=== PATIENT | female | born 1960 | race Caucasian/White ===

== ENCOUNTER 2021-06-06 11:45 | Emergency (ER) | payer OTHER, SELFPAY ==
[2021-06-06 12:06] VITALS: BP 145/70; PULSE 64; RESP 16; TEMP 36.5; O2SAT 97; BMI 24.6
--- NOTE | 2021-06-06 13:16 | ED_ITS ---
HPI - Animal Bite <Ruddy Gross PA-C - Last Filed: 06/06/21 18:54> General Chief Complaint: Animal Bite Stated Complaint: squirrel bite on finger Time Seen by Provider: 06/06/21 12:09 Source: patient Mode of arrival: Ambulatory Limitations: no limitations History of Present Illness HPI narrative: Patient is a 60-year-old female presenting to the emergency department today for evaluation a squirrel bite to her left 2nd digit. Patient states that she was hand feeding squirrels today when on the squirrels mistook her finger for a piece of food and bit into the tip of her finger. Patient states that the wound bled but she was able to clean the wound with pre surgical soap and get the bleeding under control. Of note, patient states that the squirrel was not showing aggressive behavior. Patient denies fever, chills, chest pain, shortness of breath, cough, nausea, vomiting, diarrhea, abdominal pain, dysuria, hematuria, diaphoresis, or numbness and tingling in the bilateral upper extremities. No other concerns voiced at this time. Of note, patient states that she had to have emergency surgery in 2016 on her left 2nd digit for a bone infection following a dog bite. Additionally, she notes that her most recent tetanus shot was in May of 2016. Related Data Previous Rx's Medication Instructions Recorded amoxicillin 875 mg-potassium 1 tab PO Q12H #14 tab 06/06/21 clavulanate 125 mg tablet (Augmentin) Allergies Allergy/AdvReac Type Severity Reaction Status Date / Time metoclopramide [From Reglan] Allergy Vomiting Verified 06/06/21 12:05 Sulfa (Sulfonamide Allergy Rash Verified 06/06/21 12:05 Antibiotics) Review of Systems <Ruddy Gross PA-C - Last Filed: 06/06/21 18:54> Constitutional Constitutional: Denies chills, Denies fatigue, Denies fever(s), Denies frequent falls, Denies lethargy and Denies weakness Eyes Eyes: Denies change in vision, Denies eye discharge, Denies irritation and Denies loss of vision ENT Ears, Nose, Mouth, and Throat: Denies change in voice, Denies dizziness, Denies neck pain, Denies sore throat and Denies throat swelling Cardiovascular Cardiovascular: Denies chest pain, Denies irregular heart rhythm, Denies lightheadedness, Denies palpitations, Denies dyspnea, Denies dyspnea on exertion and Denies orthopnea Respiratory Respiratory: Denies cough, Denies dyspnea, Denies dyspnea on exertion and Denies wheezing Gastrointestinal Gastrointestinal: Denies abdominal pain, Denies change in bowel habits, Denies diarrhea, Denies nausea and Denies vomiting Genitourinary Genitourinary: Denies hematuria, Denies flank pain, Denies urinary incontinence and Denies urinary urgency Musculoskeletal Musculoskeletal: Denies back pain, Denies muscle weakness, Denies neck pain, Denies numbness and Denies tingling Integumentary/Breasts Skin/Breast: Denies pruritus, Denies erythema, Denies rash and Reports wounds (Bite wound to the left 2nd finger.) Neurologic Neurologic: Denies dizziness, Denies frequent falls, Denies loss of vision, Denies numbness, Denies tingling and Denies weakness Endocrine Endocrine: Denies fatigue and Denies palpitations Allergic/Immunologic Allergic/Immunologic: Denies throat swelling and Denies wheezing Patient History <Ruddy Gross PA-C - Last Filed: 06/06/21 18:54> Social History Smoking Status: Never smoker Smoking Status: Never smoker alcohol intake frequency: a few times a week Substance Use Type: does not use Exam <Ruddy Gross PA-C - Last Filed: 06/06/21 18:54> Narrative Exam Narrative: GENERAL: 60 year old patient appears stated age. Well-developed patient, in no acute distress. HEAD: Atraumatic. Normocephalic. EYES: Pupils equal round and reactive. Extraocular motions intact. No scleral icterus. No injection or drainage. ENT: Nose without bleeding, purulent drainage. Throat without erythema, tonsillar hypertrophy or exudate. Airway patent. NECK: Trachea midline. Non tender CARDIOVASCULAR: Regular rate and rhythm without murmurs, gallops, or rubs. RESPIRATORY: Clear to auscultation. Breath sounds equal bilaterally. No wheezes, rales, or rhonchi. GASTROINTESTINAL: Abdomen soft, non-tender, nondistended. EXTREMITIES: No edema or joint tenderness. BACK: Nontender without deformity or crepitance. No flank tenderness. NEURO: AOx3. SKIN: No rash or erythema of visible areas. Small bite wound noted along the lateral aspect of the D IP of the left 2nd digit. No active bleeding or drainage, no significant surrounding erythema, warmth, or induration. Initial Vital Signs Initial Vital Signs: Vital Signs Temperature 97.7 F 06/06/21 12:06 Pulse Rate 64 06/06/21 12:06 Respiratory Rate 16 06/06/21 12:06 Blood Pressure 145/70 H 06/06/21 12:06 Pulse Oximetry 97 06/06/21 12:06 <Benjamin Matthews MD - Last Filed: 06/20/21 01:30> Initial Vital Signs Initial Vital Signs: Vital Signs Temperature 97.7 F 06/06/21 12:06 Pulse Rate 64 06/06/21 12:06 Respiratory Rate 16 06/06/21 12:06 Blood Pressure 145/70 H 06/06/21 12:06 Pulse Oximetry 97 06/06/21 12:06 Course <Ruddy Gross PA-C - Last Filed: 06/06/21 18:54> Course Course Narrative: Tdap ordered. Orders Ordered: Discontinued Medications Diphtheria/Tetanus/Acell Pertussis (Tet,Diph,Pertuss(Acell),Vac/Pf 0.5 Ml Syringe) 0.5 ml IM .ONCE ONE Stop: 06/06/21 13:22 Last Admin: 06/06/21 13:35 Dose: 0.5 ml Documented by: RENE Vital Signs Vital signs: Vital Signs - 8 hr 06/06/21 12:06 06/06/21 13:30 06/06/21 13:41 Temperature 97.7 F Pulse Rate 64 67 66 Respiratory Rate 16 18 18 Blood Pressure 145/70 H 149/67 H 149/67 H Pulse Oximetry 97 97 98 <Benjamin Matthews MD - Last Filed: 06/20/21 01:30> Orders Ordered: Discontinued Medications Diphtheria/Tetanus/Acell Pertussis (Tet,Diph,Pertuss(Acell),Vac/Pf 0.5 Ml Syringe) 0.5 ml IM .ONCE ONE Stop: 06/06/21 13:22 Last Admin: 06/06/21 13:35 Dose: 0.5 ml Documented by: RENE Vital Signs Vital signs: Vital Signs - 8 hr 06/06/21 12:06 06/06/21 13:30 06/06/21 13:41 Temperature 97.7 F Pulse Rate 64 67 66 Respiratory Rate 16 18 18 Blood Pressure 145/70 H 149/67 H 149/67 H Pulse Oximetry 97 97 98 MDM - Animal Bite <Ruddy GrossSHANNA - Last Filed: 06/06/21 18:54> [facility] Narrative Medical decision making narrative: To consider animal bite versus superficial laceration versus deep laceration versus wound infection versus osteomyelitis. Overall physical examination and history are reassuring. No active drainage, swelling, warmth, or induration noted about the bite wound. Additionally, patient states that the animal did not appear aggressive. At this time she feels comfortable being discharged home with antibiotic therapy. Return precautions discussed with patient prior to discharge. Discharge Plan Departure Patient Disposition: Home Clinical Impression: Bite by animal Instructions: DI for Animal Bites Activity Restrictions/Additional Instructions: *You have been diagnosed with animal bite *What to do: *Please continue to take your regular medications as directed. [X] New medication prescriptions sent to your pharmacy: [facility] -Augmentin [ ] New medication written as a paper prescription [ ] No new medications given *Please follow up with your primary care provider in 2-3 days, call for an appointment. Let them know you were seen in the Emergency Department and that we ask that you be seen in follow up. We will electronically transmit a record of today's note if your PCP is in our system *If you do not have a primary care provider please contact the [facility] Resource line at [phone]. They will ask some questions about your medical history and help get you set up with a doctor in the community. *Return to Emergency Department if you should have any new, worsening or concerning symptoms, such as fever greater than 101 F, shaking chills, worsening pain, persistent vomiting or other bothersome symptoms. Prescriptions: New amoxicillin-pot clavulanate [Augmentin] 875-125 mg tablet 1 tab PO Q12H Qty: 14 0RF Referrals: Mariama Anderson MD [Primary Care Provider] - <Benjamin Matthews MD - Last Filed: 06/20/21 01:30> Cosign ED Attending Cosmehranature Attestation: I was immediately available in the department for consultation. This documentation has been reviewed and I agree with assessment and plan. Supervised by Benjamin Matthews MD
[2021-06-06 13:30] VITALS: BP 149/67; PULSE 67; RESP 18; O2SAT 97
[2021-06-06] MEDS: TET,DIPH,PERTUSS(ACELL),VAC/PF 0.5 ML SYRINGE IM (13:35)
[2021-06-06 13:41] VITALS: BP 149/67; PULSE 66; RESP 18; O2SAT 98
== END 2021-06-06 13:45 | disposition home or self-care (01) ==
PROVIDERS: Emergency Provider Physician Assistant; PCP Internal Medicine
DX: S61.251A Open bite of left index finger without damage to nail, initial encounter (principal); Z88.1 Allergy status to other antibiotic agents; Z23 Encounter for immunization; W53.21XA Bitten by squirrel, initial encounter; Y93.89 Activity, other specified
CPT/HCPCS: 90471; 99282; 99283; 90715

== ENCOUNTER → 2021-09-28 11:30 | Outpatient (CLI) | payer OTHER, SELFPAY | PROVIDERS: PCP Internal Medicine; Visit Provider Physician Assistant | DX: R30.0 Dysuria (principal) | CPT/HCPCS: 87077; 87086; 87186 ==

== ENCOUNTER → 2021-11-17 12:00 | Outpatient (ROUT) | payer OTHER, SELFPAY | PROVIDERS: PCP Internal Medicine; Visit Provider Physician Assistant | DX: N39.0 Urinary tract infection, site not specified (principal) | CPT/HCPCS: 87077; 87086; 87186 ==

== ENCOUNTER → 2022-03-08 11:30 | Outpatient (CLI) | payer OTHER, SELFPAY | PROVIDERS: Visit Provider Registered Nurse | DX: N39.0 Urinary tract infection, site not specified (principal) | CPT/HCPCS: 87077; 87086; 87186 ==

== ENCOUNTER → 2023-01-22 11:56 | Outpatient (CLI) | payer OTHER, SELFPAY ==
--- NOTE | 2023-01-22 11:58 | DI.RAD.S_ITS ---
PROCEDURE: XR HIP W PEL IF DONE LT 2V INDICATIONS: left posterior leg pain/injury 1 mo [employer], hip replacement TECHNIQUE: AP pelvis and lateral view of the left hip acquired. COMPARISON: None. FINDINGS: Bones: Patient is status post left hip arthroplasty, with hardware components in expected positions. The hip joint appears congruent. The visualized bony structures appear intact. Soft tissues: Overlying postoperative changes are noted. No suspicious soft tissue densities. IMPRESSION: Expected postsurgical change for left hip arthroplasty. No fracture. No osseous lesion. If symptoms and/or clinical suspicion for pathology persists, further assessment with repeat radiographs (7-10 days) or advanced imaging (e.g. CT, MRI or bone scan) should be considered. Dictated by: Taylor Hoang MD, PhD on 01/22/2023 at 13:05 Approved by: Taylor Hoang MD, PhD on 01/22/2023 at 13:06
== END ==
PROVIDERS: Referring Provider Student in an Organized Health Care Education/Training Program; Visit Provider Student in an Organized Health Care Education/Training Program
DX: S76.312A Strain of muscle, fascia and tendon of the posterior muscle group at thigh level, left thigh, initial encounter (principal); Z96.642 Presence of left artificial hip joint; X58.XXXA Exposure to other specified factors, initial encounter
CPT/HCPCS: 73502

== ENCOUNTER 2023-06-18 20:18 | Emergency (ER) | payer OTHER, SELFPAY ==
[2023-06-18 20:25] VITALS: BP 121/67; PULSE 73; RESP 16; TEMP 36.7; O2SAT 96; BMI 27.1
--- NOTE | 2023-06-18 20:51 | ED.WOUNDLAC ---
HPI - Wound/Laceration General Chief Complaint: Wound/Laceration Stated Complaint: dog scratched rt ear Time Seen by Provider: 06/18/23 20:39 Source: patient Mode of arrival: Ambulatory History of Present Illness HPI narrative: Patient is a 62-year-old female. Up-to-date on immunizations. Is here for evaluation of a dog scratched by her right ear. She states that it occurred approximately 7-8 hours ago. States she did not have an opportunity to come to get evaluated until now. She did cover with topical antibiotic ointment. The dog did belonged to a family member. It is up-to-date on all of its immunizations. Related Data Home Medications Medication Instructions Recorded Confirmed buspirone 5 mg tablet 5 mg PO BID 09/28/21 08/10/22 citalopram 20 mg tablet 20 mg PO DAILY 09/28/21 08/10/22 hydroxychloroquine 200 mg tablet 200 mg PO DAILY 09/28/21 08/10/22 (Plaquenil) lisinopril 20 mg tablet 20 mg PO DAILY 09/28/21 08/10/22 simvastatin 20 mg tablet 20 mg PO DAILY 09/28/21 08/10/22 tamsulosin 0.4 mg capsule 0.4 mg PO DAILY 09/28/21 08/10/22 Previous Rx's Medication Instructions Recorded ofloxacin 0.3 % eye drops 1 drp EYE-BOTH Q4H #10 mL 07/26/22 amoxicillin 875 mg-potassium 1 tab PO BID 7 days #14 tabs 06/18/23 clavulanate 125 mg tablet Allergies Allergy/AdvReac Type Severity Reaction Status Date / Time metoclopramide [From Reglan] Allergy Vomiting Verified 01/22/23 11:39 Sulfa (Sulfonamide Allergy Rash Verified 01/22/23 11:39 Antibiotics) Review of Systems ENT Ears, Nose, Mouth, and Throat: Reports system reviewed and no additional complaints, except as documented Integumentary/Breasts Skin/Breast: Reports system reviewed and no additional complaints, except as documented Patient History Social History Smoking Status: Never smoker Smoking Status: Never smoker alcohol intake frequency: a few times a week Substance Use Type: does not use Exam Initial Vital Signs Initial Vital Signs: Vital Signs Temperature 98.0 F 06/18/23 20:25 Pulse Rate 73 06/18/23 20:25 Respiratory Rate 16 06/18/23 20:25 Blood Pressure 121/67 06/18/23 20:25 Pulse Oximetry 96 06/18/23 20:25 Oxygen Delivery Method Room Air 06/18/23 20:25 HENMT Ears: TM normal on the right and other (1CM lac with 0.5CM superficial and 0.5CM deeper) Skin Other: Patient has a total length 1 cm laceration with only 0.5 cm that is deep on the posterior aspect of the right ear auricle. No active drainage. Course Orders Ordered: Discontinued Medications Amoxicillin/Clavulanate Potassium (Amoxicillin/Clav 875/125 Mg) 1 tab PO NOW ONE Stop: 06/18/23 20:53 Last Admin: 06/18/23 21:02 Dose: 1 tab Vital Signs Vital signs: Vital Signs - 8 hr 06/18/23 20:25 Temperature 98.0 F Pulse Rate 73 Respiratory Rate 16 Blood Pressure 121/67 Pulse Oximetry 96 Oxygen Delivery Method Room Air MDM - Wound/Laceration MDM Narrative Medical decision making narrative: Patient has a very small laceration of the posterior aspect of the right ear. No active bleeding. No signs of infection. No hematoma noted. We did discuss that we could potentially close the small area that is deeper however I did not feel that this would specifically improve any sort a cosmetic outcome or prevent any infection. Patient opted not to have any stitches placed. Will place her on antibiotic because the wound is on her right ear. She was given care instructions and return precautions. She expressed understanding and agreement with plan. Discharge Plan Departure Patient Disposition: Home Clinical Impression: Dog scratch Activity Restrictions/Additional Instructions: You can shower like normal. You can put topical antibiotic ointment over the area. Take the antibiotics as directed. Return to the emergency department for new or worsening symptoms. Prescriptions: New amoxicillin-pot clavulanate 875-125 mg tablet 1 tab PO BID 7 Days Qty: 14 0RF No Action hydroxychloroquine [Plaquenil] 200 mg tablet 200 mg PO DAILY buspirone 5 mg tablet 5 mg PO BID citalopram 20 mg tablet 20 mg PO DAILY simvastatin 20 mg tablet 20 mg PO DAILY lisinopril 20 mg tablet 20 mg PO DAILY tamsulosin 0.4 mg capsule 0.4 mg PO DAILY ofloxacin 0.3 % drops 1 drp EYE-BOTH Q4H Qty: 10 1RF Rx Instructions: Instill 1 to 2 drops in both eyes every 2 to 4 hours for the first 2 days, then instill 1 to 2 drops 4 times daily for an additional 5 days. Referrals: Mariama Anderson MD [Primary Care Provider] - Stand Alone Forms: Patient Portal/API
[2023-06-18] MEDS: AMOXICILLIN/CLAV 875/125 MG 1 TAB PO (21:02)
== END 2023-06-18 21:06 | disposition home or self-care (01) ==
PROVIDERS: Emergency Provider Emergency Medicine; PCP Internal Medicine
DX: S01.311A Laceration without foreign body of right ear, initial encounter (principal); W54.1XXA Struck by dog, initial encounter
CPT/HCPCS: 99283

== ENCOUNTER → 2023-08-08 12:36 | Outpatient (CLI) | payer OTHER, SELFPAY ==
[2023-08-08 13:11] LABS: Add Manual Diff / Slide Review NO; Basophils Absolute Auto 0 /uL (0-100); Basophils Percent Auto 0.5 % (0-2); Eosinophils Absolute Auto 300 /uL (0-450); Hematocrit 32.1 % (36-46); Hemoglobin 10.8 g/dL (12.0-16.0); Lymphocytes Absolute Auto 2900 /uL (1100-4500); Lymphocytes Percent Auto 47.1 % (25-40); Mean Corpuscular HGB Conc 33.7 % (30-36); Mean Corpuscular Hemoglobin 29.4 PG (26-34); Mean Corpuscular Volume 87.2 fL (80-100); Monocytes Absolute Auto 500 /uL (0-900); Monocytes Percent Auto 8.4 % (3-14); Neutrophils Absolute Auto 2500 /uL (1500-7000); Platelet Count 250 X10^3/uL (150-400); Red Blood Cell Count 3.69 X10^6/uL (4.0-5.2); Red Cell Distribution Width 13.6 % (11.6-14.8); White Blood Cell Count 6.3 X10^3/uL (4.5-11.0)
[2023-08-08 13:29] LABS: HEMOLYSIS < 15 (0-50); Iron 79 ug/dL (37-170)
[2023-08-08 13:40] LABS: Percent Iron Saturation 31 % (15-50); Total Iron Binding Capacity 252 ug/dL (265-497); Transferrin 224 mg/dL (206-381)
[2023-08-08 13:46] LABS: Free T4, Direct Thyroxine 0.74 ng/dL (0.78-2.19)
[2023-08-08 13:55] LABS: Ferritin 55 ng/mL (11-264)
[2023-08-08 14:00] LABS: Thyroid Stimulating Hormone 1.23 uIU/mL (0.47-4.68)
[2023-08-12 13:25] LABS: Albumin 3.6 g/dL (2.9-4.4); Alpha-1-Globulin 0.3 g/dL (0.0-0.4); Alpha-2-Globulin 0.7 g/dL (0.4-1.0); Gamma Globulin 0.9 g/dL (0.4-1.8); Globulin Total 2.8 g/dL (2.2-3.9); Protein, Total 6.4 g/dL (6.0-8.5)
== END ==
PROVIDERS: PCP Internal Medicine; Referring Provider Internal Medicine Rheumatology; Visit Provider Internal Medicine Rheumatology
DX: M35.1 Other overlap syndromes (principal); Z79.899 Other long term (current) drug therapy
CPT/HCPCS: 36415; 82728; 83540; 83550; 84155; 84165; 84439; 84443; 85025

== ENCOUNTER → 2023-08-20 14:11 | Outpatient (CLI) | payer OTHER, SELFPAY ==
[2023-08-20 16:18] LABS: Add Manual Diff / Slide Review NO; Basophils Absolute Auto 0 /uL (0-100); Basophils Percent Auto 0.5 % (0-2); Eosinophils Absolute Auto 200 /uL (0-450); Eosinophils Percent Auto 2.5 % (2-4); Hematocrit 32.3 % (36-46); Lymphocytes Absolute Auto 2200 /uL (1100-4500); Lymphocytes Percent Auto 28.7 % (25-40); Mean Corpuscular Hemoglobin 29.9 PG (26-34); Mean Corpuscular Volume 88.1 fL (80-100); Monocytes Absolute Auto 600 /uL (0-900); Monocytes Percent Auto 7.8 % (3-14); Neutrophils Absolute Auto 4600 /uL (1500-7000); Neutrophils Percent Auto 60.5 % (50-75); Platelet Count 241 X10^3/uL (150-400); Red Blood Cell Count 3.66 X10^6/uL (4.0-5.2); Red Cell Distribution Width 13.7 % (11.6-14.8); White Blood Cell Count 7.7 X10^3/uL (4.5-11.0)
[2023-08-20 16:46] LABS: Alanine Aminotransferase 17 IU/L (<35); Albumin 3.9 g/dL (3.5-5.0); Albumin Globulin Ratio 1.3 (1.0-2.8); Alkaline Phosphatase 73 U/L (38-126); Aspartate Aminotransferase 29 IU/L (14-36); Bilirubin Total 0.4 mg/dL (0.2-1.3); Bilirubin Unconjugated 0.2 mg/dL (0.0-1.1); Cholesterol 180 mg/dL (140-199); Globulin 2.9 g/dL (1.7-4.1); HDL Cholesterol 75 mg/dL (40-60); HEMOLYSIS < 15 (0-50); LDL Cholesterol Calculated 87 mg/dL (<100); Total Protein 6.8 g/dL (6.3-8.2); Triglycerides 89 mg/dL (35-150)
[2023-08-24 14:17] LABS: QuantiFERON Mitogen Value >10.00 IU/mL (.); QuantiFERON Nil Value 0.07 IU/mL (.); QuantiFERON TB Gold Plus Negative (Negative); QuantiFERON TB1 Ag Value 0.14 IU/mL (.); QuantiFERON TB2 Ag Value 0.08 IU/mL (.)
== END ==
LOC: LAB 14:13
PROVIDERS: PCP Internal Medicine; Referring Provider Dermatology; Visit Provider Dermatology
DX: L20.89 Other atopic dermatitis (principal)
CPT/HCPCS: 36415; 80061; 80076; 85025; 86480

== ENCOUNTER 2023-08-23 21:12 | Emergency (ER) | payer OTHER, SELFPAY ==
[2023-08-23 21:21] VITALS: BP 127/59; PULSE 69; RESP 20; TEMP 36.2; O2SAT 98; BMI 27.4
[2023-08-23 22:11] VITALS: BP 116/61; PULSE 66; RESP 18; TEMP 36.4; O2SAT 98
--- NOTE | 2023-08-23 22:26 | PC.NURSE ---
pt states she put her foot in between her dogs and was bitten on the left lower ext with scratches on the right lower ext. pt utd on tetanus, pt states I have been through this before I just think I need a shot and some antibiotics
--- NOTE | 2023-08-23 23:37 | ED_ITS ---
HPI - Animal Bite General Chief Complaint: Animal Bite Stated Complaint: Dog bite both ankles Time Seen by Provider: 08/23/23 23:36 Source: patient Mode of arrival: Ambulatory History of Present Illness HPI narrative: 62-year-old woman with a history of hypertension, hyperlipidemia, Sjogren's syndrome who presents complaining of a dog bite to lower extremities. She has a Mong[place] Ibanez and a foster puppy as well. The 2 were having a ?disagreement ?and she put her leg in the middle to break up the argument. She has a small puncture wound on the lower left anterior saravia along with a minor scratch. On the right lower saravia she has some scratches and pressure wounds with some contusion. There was no significant bleeding. muscle is not involved and she is able to walk without difficulty Related Data Home Medications Medication Instructions Recorded Confirmed buspirone 5 mg tablet 5 mg PO BID 09/28/21 08/10/22 citalopram 20 mg tablet 20 mg PO DAILY 09/28/21 08/10/22 hydroxychloroquine 200 mg tablet 200 mg PO DAILY 09/28/21 08/10/22 (Plaquenil) lisinopril 20 mg tablet 20 mg PO DAILY 09/28/21 08/10/22 simvastatin 20 mg tablet 20 mg PO DAILY 09/28/21 08/10/22 tamsulosin 0.4 mg capsule 0.4 mg PO DAILY 09/28/21 08/10/22 Previous Rx's Medication Instructions Recorded ofloxacin 0.3 % eye drops 1 drp EYE-BOTH Q4H #10 mL 07/26/22 amoxicillin 875 mg-potassium 1 tab PO BID #20 tabs 08/24/23 clavulanate 125 mg tablet Allergies Allergy/AdvReac Type Severity Reaction Status Date / Time metoclopramide [From Reglan] Allergy Vomiting Verified 08/23/23 21:26 Sulfa (Sulfonamide Allergy Rash Verified 08/23/23 21:26 Antibiotics) Review of Systems Review of Systems Narrative: Pertinent positive and negative findings as per HPI Patient History Medical History Depression Hyperlipidemia Hypertension Sjogrens syndrome Social History Smoking Status: Never smoker Smoking Status: Never smoker alcohol intake frequency: a few times a week Substance Use Type: does not use Exam Initial Vital Signs Initial Vital Signs: Vital Signs Temperature 97.1 F L 08/23/23 21:21 Pulse Rate 69 08/23/23 21:21 Respiratory Rate 20 08/23/23 21:21 Blood Pressure 127/59 L 08/23/23 21:21 Pulse Oximetry 98 08/23/23 21:21 Oxygen Delivery Method Room Air 08/23/23 21:21 General: Alert appropriate in no acute distress Respiratory: Able to speak in full sentences, no obvious respiratory distress Skin: No obvious rashes, warm and dry Neurologic: Grossly intact no obvious asymmetries or abnormalities Psych: appropriate insight and affect, cooperative Extremities: 2 mm laceration type wound to the left anterior saravia that does not need repair, does not appear to be a deep puncture wound. Scratch next to that. On the right lower extremity there are some scratches and you can see where there were 2 bites with canine bruising that did not break the skin. she is neurovascularly intact Course Vital Signs Vital signs: Vital Signs - 8 hr 08/23/23 21:21 08/23/23 22:11 Temperature 97.1 F L 97.6 F Pulse Rate 69 66 Respiratory Rate 20 18 Blood Pressure 127/59 L 116/61 Pulse Oximetry 98 98 Oxygen Delivery Method Room Air Room Air MDM - Animal Bite MDM Narrative Medical decision making narrative: CC: Dog bite Complicating co-morbidities: Sjogren syndrome, depression, hypertension, hyperlipidemia Data collected from: patient Differential considered: Superficial scratch, deep puncture wound, muscle or tendon involvement Exam documented above, pertinent findings include: Small wound on the left leg and minor scratches on the right leg consistent with superficial dog bite Discussion: 62-year-old woman who was breaking up a fight between her 2 dogs earlier this evening. One ended up biting each leg. Minimal damage, skin was broken in at least 3 places without deep puncture wound. She is placed on Augmentin for 10 days with instructions to keep the wounds covered with antibiotic ointment until the beginning to heal. She understands when she does need to return to the emergency department as she did have a similar finding on hand that required a week-long hospitalization. Discharge Plan Departure Patient Disposition: Home Clinical Impression: Dog bite Qualifiers: Encounter type: initial encounter Qualified Code(s): W54.0XXA - Bitten by dog, initial encounter Instructions: DI for Dog Bite Activity Restrictions/Additional Instructions: Thank you for coming in today Fortunately these wounds are small enough that they do not need any type of repair. They are still at risk for infection. I have given you a prescription for Augmentin and you will need to complete 10 days. Please keep antibiotic ointment over the wounds until they have scabbed over. Please make sure you return if you are noticing any signs of infection Prescriptions: New amoxicillin-pot clavulanate 875-125 mg tablet 1 tab PO BID Qty: 20 0RF No Action hydroxychloroquine [Plaquenil] 200 mg tablet 200 mg PO DAILY buspirone 5 mg tablet 5 mg PO BID citalopram 20 mg tablet 20 mg PO DAILY simvastatin 20 mg tablet 20 mg PO DAILY lisinopril 20 mg tablet 20 mg PO DAILY tamsulosin 0.4 mg capsule 0.4 mg PO DAILY ofloxacin 0.3 % drops 1 drp EYE-BOTH Q4H Qty: 10 1RF Rx Instructions: Instill 1 to 2 drops in both eyes every 2 to 4 hours for the first 2 days, then instill 1 to 2 drops 4 times daily for an additional 5 days. Referrals: Mariama Anderson MD [Primary Care Provider] - Stand Alone Forms: Patient Portal/API
[2023-08-24 00:06] VITALS: BP 118/57; PULSE 66; RESP 18; O2SAT 93
[2023-08-24] MEDS: DOXYCYCLINE HYCLATE 100 MG TABLET PO (00:12)
[2023-08-24] MEDS: AMOXICILLIN/CLAV 875/125 MG 1 TAB PO (00:12)
[2023-08-24] MEDS: BACITRACIN OINT 0.9 GM PCKT 1 APPLIC TOP (00:12)
[2023-08-24 00:17] VITALS: BP 117/61; PULSE 62; RESP 16; TEMP 36.6; O2SAT 98
== END 2023-08-24 00:16 | disposition home or self-care (01) ==
PROVIDERS: Emergency Provider Emergency Medicine; PCP Internal Medicine
DX: S81.852A Open bite, left lower leg, initial encounter (principal); S81.851A Open bite, right lower leg, initial encounter; W54.0XXA Bitten by dog, initial encounter; Z79.899 Other long term (current) drug therapy
CPT/HCPCS: 99283

== ENCOUNTER 2023-11-30 10:55 | Emergency (ER) | payer OTHER, SELFPAY ==
[2023-11-30 10:59] VITALS: BP 163/82; PULSE 94; RESP 18; TEMP 38.2; O2SAT 100; BMI 26.9
--- NOTE | 2023-11-30 11:19 | ED.URI ---
HPI - URI/Sore Throat General Chief Complaint: Upper Respiratory Symptoms Stated Complaint: COVID+ Time Seen by Provider: 11/30/23 11:18 Source: patient Mode of arrival: Ambulatory History of Present Illness HPI Narrative: Patient is a 63-year-old female history of Sjogren's disease, hypertension presenting today with known COVID. She reports that she started having some sinus congestion about a week ago she started feeling ill about 2 days ago and tested positive for COVID today at home. She has [place] vaccines but never tested positive. She tested home She denies any significant shortness of breath really complaining of some nasal congestion. Related Data Home Medications Medication Instructions Recorded Confirmed buspirone 5 mg tablet 5 mg PO BID 09/28/21 08/10/22 citalopram 20 mg tablet 20 mg PO DAILY 09/28/21 08/10/22 hydroxychloroquine 200 mg tablet 200 mg PO DAILY 09/28/21 08/10/22 (Plaquenil) lisinopril 20 mg tablet 20 mg PO DAILY 09/28/21 08/10/22 simvastatin 20 mg tablet 20 mg PO DAILY 09/28/21 08/10/22 tamsulosin 0.4 mg capsule 0.4 mg PO DAILY 09/28/21 08/10/22 Previous Rx's Medication Instructions Recorded ofloxacin 0.3 % eye drops 1 drp EYE-BOTH Q4H #10 mL 07/26/22 amoxicillin 875 mg-potassium 1 tab PO BID #20 tabs 08/24/23 clavulanate 125 mg tablet Allergies Allergy/AdvReac Type Severity Reaction Status Date / Time metoclopramide [From Reglan] Allergy Vomiting Verified 08/23/23 21:26 Sulfa (Sulfonamide Allergy Rash Verified 08/23/23 21:26 Antibiotics) Patient History Medical History Depression Hyperlipidemia Hypertension Sjogrens syndrome Social History Smoking Status: Never smoker Smoking Status: Never smoker alcohol intake frequency: a few times a week Substance Use Type: does not use Exam Initial Vital Signs Initial Vital Signs: Vital Signs Temperature 100.7 F H 11/30/23 10:59 Pulse Rate 94 H 11/30/23 10:59 Respiratory Rate 18 11/30/23 10:59 Blood Pressure 163/82 H 11/30/23 10:59 Pulse Oximetry 100 11/30/23 10:59 Oxygen Delivery Method Room Air 11/30/23 10:59 GENERAL: Alert pleasant well-appearing 63-year-old female and in no acute distress. HEENT: Head atraumatic,EOMI, pupils reactive, face symmetric, moist mucous membranes CARDIOVASCULAR: Regular rate and rhythm without murmurs, rubs or gallops. RESPIRATORY: Breath sounds equal bilaterally, no wheezes rales or rhonchi. EXTREMITIES: Normal range of motion, no clubbing or edema. Neurovascularly intact NEUROLOGICAL: Alert and oriented x4. SKIN: Warm, dry, no laceration, no petechiae, no rashes or lesions. Course Orders Ordered: Discontinued Medications Acetaminophen (Acetaminophen 325 Mg Tablet) 975 mg PO NOW ONE Stop: 11/30/23 11:26 Last Admin: 11/30/23 11:29 Dose: 975 mg Documented By: TC Vital Signs Vital signs: Vital Signs - 8 hr 11/30/23 10:59 11/30/23 11:38 11/30/23 11:39 Temperature 100.7 F H 101.6 F H 101.6 F H Pulse Rate 94 H 88 88 Respiratory Rate 18 18 18 Blood Pressure 163/82 H 134/70 134/70 Pulse Oximetry 100 97 97 Oxygen Delivery Method Room Air Room Air Room Air MDM - URI/Sore Throat MDM Narrative Medical decision making narrative: Patient 63-year-old female presenting with a positive home COVID test presenting today for evaluation. She has not hypoxic low-grade temperature. She is more concerned about her nasal congestion. At this time we talked about supportive care when to return to the ED. She is given Tylenol here. Need for chest x-ray lung sounds are clear no respiratory distress. No indication for treatment of her sinuses recommend that she clears COVID infection and reassess for nasal congestion Discharge Plan Departure Patient Disposition: Home Clinical Impression: COVID-19 Instructions: COVID-19 Activity Restrictions/Additional Instructions: *You have been diagnosed with COVID-19 *What to do: Increase fluids as tolerated Tylenol Motrin as needed expect to be poorly and have fevers. May check your oxygen intermittently *Continue to take medications as directed *Follow up with your primary care provider in 2-3 days or call [phone] *Return to ER if you should have increased difficulty breathing oxygen less than 90%, not tolerating fluids [or] any new, worsening or concerning symptoms Prescriptions: No Action hydroxychloroquine [Plaquenil] 200 mg tablet 200 mg PO DAILY buspirone 5 mg tablet 5 mg PO BID citalopram 20 mg tablet 20 mg PO DAILY simvastatin 20 mg tablet 20 mg PO DAILY lisinopril 20 mg tablet 20 mg PO DAILY tamsulosin 0.4 mg capsule 0.4 mg PO DAILY ofloxacin 0.3 % drops 1 drp EYE-BOTH Q4H Qty: 10 1RF Rx Instructions: Instill 1 to 2 drops in both eyes every 2 to 4 hours for the first 2 days, then instill 1 to 2 drops 4 times daily for an additional 5 days. amoxicillin-pot clavulanate 875-125 mg tablet 1 tab PO BID Qty: 20 0RF Referrals: Mariama Anderson MD [Primary Care Provider] - Stand Alone Forms: Patient Portal/API
[2023-11-30] MEDS: ACETAMINOPHEN 325 MG TABLET 975 MG PO (11:29)
[2023-11-30 11:38] VITALS: BP 134/70; PULSE 88; RESP 18; TEMP 38.7; O2SAT 97
[2023-11-30 11:39] VITALS: BP 134/70; PULSE 88; RESP 18; TEMP 38.7; O2SAT 97
== END 2023-11-30 11:40 | disposition home or self-care (01) ==
PROVIDERS: Emergency Provider Emergency Medicine; PCP Internal Medicine
DX: U07.1 COVID-19 (principal)
CPT/HCPCS: 99283